=== PATIENT | male | born 1955 | race Caucasian/White ===

== ENCOUNTER 2017-04-17 10:19 | Inpatient (IN) | payer OTHER ==
[~2017-04-17] VITALS: Ht 190.5 cm; Wt 104.2 kg
[2017-04-17] MEDS ORDERED: GLUC500T4 PO (13:58)
[2017-04-17] MEDS ORDERED: ONCETAB7 PO (13:58)
[2017-04-17] MEDS ORDERED: LOSA25TA PO (13:58)
[2017-04-20] MEDS ORDERED: BUPIVACAINE LIPOSOME PF 1.3% 20 ML VIAL ONE (09:13)
[2017-04-20] MEDS ORDERED: DEXAMETHASONE SOD PHOS PF 10 MG/ML VIAL IV ONE (09:13)
[2017-04-20 10:56] VITALS: BP 134/89; PULSE 75; RESP 18; TEMP 98.5; O2SAT 96
[2017-04-20] MEDS ORDERED: LACTATED RINGER'S 1000 ML IV PRN (11:00)
[2017-04-20] MEDS ORDERED: INSULIN HUMAN REGULAR 1,000 UNITS/10 ML VIAL SQ PRN (11:00)
[2017-04-20] MEDS ORDERED: POVIDONE IODINE 5% (ANTISEPSIS KIT) 4 APPLICATIONS EACH NARE PRN (11:00)
[2017-04-20] MEDS ORDERED: METRONIDAZOLE 500 MG/100 ML ISONTONIC SOLN IV SCH (11:00)
[2017-04-20] MEDS ORDERED: CHLORHEXIDINE GLUCONATE 2 % 1 PACK (2 CLOTHS) TOPICAL PRN (11:00)
[2017-04-20] MEDS ORDERED: METOPROLOL TARTRATE 25 MG TAB PO PRN (11:00)
[2017-04-20] MEDS ORDERED: FLUCONAZOLE/NACL 400 MG/200 ML IV SCH (11:00)
[2017-04-20] MEDS ORDERED: SODIUM CHLORID 0.9% 500 ML IV PRN (11:00)
[2017-04-20] MEDS ORDERED: ceFAZolin 1,000 MG/NS 100 ML IV SCH ×2 (11:00)
[2017-04-20 11:33] LABS: AUTOMATED NEUTROPHIL # 6.5 TH/MM3 (1.8-7.7); BASOPHIL % 0.3 % (0.0-2.0); EOSINOPHIL # 0.2 TH/MM3 (0-0.4); EOSINOPHIL % 2.2 % (0.0-4.0); HEMATOCRIT 45.4 % (39.0-51.0); HEMO FLAGS DIFF FINAL; LYMPH % 26.5 % (9.0-44.0); LYMPHOCYTE # 2.7 TH/MM3 (1.0-4.8); MEAN CELL VOLUME 94.4 FL (80.0-100.0); MEAN CORPUSCULAR HEMOGLOBIN 32.4 PG (27.0-34.0); MEAN CORPUSCULAR HGB CONC 34.4 % (32.0-36.0); MONO % 6.8 % (0.0-8.0); NEUT % 64.2 % (16.0-70.0); PLATELET COUNT 255 TH/MM3 (150-450); RED BLOOD COUNT 4.81 MIL/MM3 (4.50-5.90); RED CELL DISTRIBUTION WIDTH 13.6 % (11.6-17.2); WHITE BLOOD COUNT 10.2 TH/MM3 (4.0-11.0)
[2017-04-20 11:48] LABS: BICARBONATE 25.8 MEQ/L (21.0-32.0)
[2017-04-20 11:51] LABS: POTASSIUM 4.2 MEQ/L (3.5-5.1)
[2017-04-20] MEDS ORDERED: BUPRENORPHINE HCL 0.3 MG/1 ML VIAL ONE (12:18)
[2017-04-20] MEDS ORDERED: FAMOTIDINE 20 MG/2 ML VIAL ONE (13:08)
[2017-04-20] MEDS ORDERED: PROPOFOL 200 MG/20 ML AMP IV ONE (14:51)
[2017-04-20] MEDS ORDERED: ONDANSETRON HCL 4 MG/2 ML VIAL IV PUSH ONE (14:52)
[2017-04-20] MEDS ORDERED: PHENYLEPH/NS 1000 MCG/10 ML SYR IV ONE (14:52)
[2017-04-20] MEDS ORDERED: ePHEDrine/NS 25 MG/5 ML SYR IV ONE (14:52)
[2017-04-20] MEDS ORDERED: NORMOSOL R INJ 2,000 ML IV ONE (14:53)
[2017-04-20] MEDS ORDERED: LACTATED RINGER'S 1000 ML INJ 1,000 ML IV ONE (14:53)
[2017-04-20] MEDS ORDERED: ceFAZolin 2 GM PREMIX 50 ML ONE (15:57)
[2017-04-20] MEDS ORDERED: SUGAMMADEX SODIUM 200 MG/2 ML VIAL IV PUSH ONE ×2 (16:05)
[2017-04-20] MEDS ORDERED: HYDROmorphone HCL PF 2 MG/ML VIAL ONE (16:05)
[2017-04-20] MEDS ORDERED: DO NOT ADM ANY ANTICOAGULANT DRUGS PRN (18:10)
[2017-04-20] MEDS ORDERED: fentaNYL CITRATE 250 MCG/5 ML AMP ONE (18:20)
[2017-04-20] MEDS ORDERED: MIDAZOLAM HCL 2 MG/2 ML VIAL ONE (18:20)
--- NOTE | 2017-04-20 18:29 | HHI.PR ---
Immediate Post Op Note Procedure Date: Apr 20, 2017 Pre Op Diagnosis: (1) Duodenal adenoma Post Op Diagnosis: (1) Duodenal adenoma Surgeon: Gus Jeffries Assistant Operations Manager(s): EGLA Kelley Procedure: Open duodenal resection ampullectomy appendectomy Findings: large polyp Complications: none Specimen(s) removed: ampulla, 2nd portion duodenum Estimated blood loss: 100ml Anesthesia: General, Regional Block Drains: DEVI IVF Patient to: PACU Patient Condition: Good Gus Jeffries MD Apr 20, 2017 18:29
[2017-04-20] MEDS ORDERED: NALOXONE HCL 0.4 MG/ML AMP IV PRN ×2 (18:30)
[2017-04-20] MEDS ORDERED: SODIUM CHLORIDE 0.9% FLUSH 10 ML FLUSH IV FLUSH PRN (18:30)
[2017-04-20] MEDS ORDERED: ONDANSETRON HCL 4 MG/2 ML VIAL IV PRN (18:30)
[2017-04-20] MEDS ORDERED: Post-op Orders (for Pharmacy) MISC XX ONE (18:30)
[2017-04-20] MEDS ORDERED: diphenhydrAMINE HCL 50 MG/ML VIAL IV PRN (18:30)
[2017-04-20] MEDS ORDERED: LORazepam 2 MG/ML VIAL IVP PRN (18:30)
[2017-04-20] MEDS: ACETAMINOPHEN 1000 MG/100 ML VIAL IV SCH (19:00)
[2017-04-20] MEDS: SODIUM CHLOR 0.9% 1000 ML INJ 1,000 ML IV SCH (19:00)
[2017-04-20] MEDS: MORPHINE SULFATE 30 MG/30 ML PCA IV SCH (19:24)
[2017-04-20] MEDS: metroNIDAZOLE 500 MG INJ 100 ML IV SCH (19:27)
[2017-04-20] MEDS: PANTOPRAZOLE SODIUM 40 MG VIAL IV SCH (19:31)
[2017-04-20 20:45] VITALS: BP 168/95; PULSE 80; RESP 17; TEMP 97.6; O2SAT 95
[2017-04-20] MEDS: SODIUM CHLORIDE 0.9% FLUSH 10 ML FLUSH IV FLUSH SCH (21:15)
[2017-04-20] MEDS: PCA - TOTAL MG MORPHINE DELIVERED PER SHIFT SCH (22:11)
[2017-04-21] VITALS (11 sets, daily range): BP systolic 144–165; BP diastolic 77–95; PULSE 64–83; RESP 12–26; TEMP 97.7–98.4; O2SAT 93–97
[2017-04-21] MEDS: ACETAMINOPHEN 1000 MG/100 ML VIAL IV SCH ×4 (01:34→13:31)
[2017-04-21] MEDS: SODIUM CHLOR 0.9% 1000 ML INJ 1,000 ML IV SCH ×2 (04:18→13:31)
[2017-04-21] MEDS: metroNIDAZOLE 500 MG INJ 100 ML IV SCH ×2 (04:18→11:18)
[2017-04-21] MEDS: PCA - TOTAL MG MORPHINE DELIVERED PER SHIFT SCH ×3 (06:00→22:00)
--- NOTE | 2017-04-21 07:35 | EKG ---
Date Performed: 04/20/2017 Time Performed: 10:48:06 PTAGE: 61 years EKG: Sinus rhythm NORMAL ECG NO PREVIOUS TRACING DOCTOR: Delfina Collazo Interpretating Date/Time 04/21/2017 07:35:30
[2017-04-21] MEDS: PANTOPRAZOLE SODIUM 40 MG VIAL IV SCH ×2 (07:44→20:06)
[2017-04-21] MEDS: SODIUM CHLORIDE 0.9% FLUSH 10 ML FLUSH IV FLUSH SCH ×2 (07:44→20:06)
[2017-04-21 09:03] LABS: AUTOMATED NEUTROPHIL # 13.4 TH/MM3 (1.8-7.7); BASOPHIL # 0.1 TH/MM3 (0-0.2); BASOPHIL % 0.3 % (0.0-2.0); HEMATOCRIT 42.4 % (39.0-51.0); HEMO FLAGS DIFF FINAL; LYMPH % 10.4 % (9.0-44.0); LYMPHOCYTE # 1.7 TH/MM3 (1.0-4.8); MEAN CELL VOLUME 95.5 FL (80.0-100.0); MEAN CORPUSCULAR HEMOGLOBIN 32.2 PG (27.0-34.0); MEAN CORPUSCULAR HGB CONC 33.7 % (32.0-36.0); MONO % 6.9 % (0.0-8.0); NEUT % 82.4 % (16.0-70.0); PLATELET COUNT 216 TH/MM3 (150-450); RED BLOOD COUNT 4.44 MIL/MM3 (4.50-5.90); RED CELL DISTRIBUTION WIDTH 13.7 % (11.6-17.2); WHITE BLOOD COUNT 16.3 TH/MM3 (4.0-11.0)
[2017-04-21 09:48] LABS: BICARBONATE 25.9 MEQ/L (21.0-32.0); POTASSIUM 4.4 MEQ/L (3.5-5.1)
[2017-04-21] MEDS: ENALAPRILAT 2.5 MG/2 ML VIAL IV PUSH PRN (11:18)
[2017-04-21 12:32] LABS: CALCIUM-PROTEIN CORRECTED 8.3 MG/DL (8.5-10.1)
--- NOTE | 2017-04-21 13:12 | HHI.PR ---
Subjective Subjective Notes Resting in bed Pain controlled using ZONE SUPERVISOR FIREARMS Anxious to get pathology report back Objective Vitals/I&O Vital Signs Date Time Temp Pulse Resp B/P Pulse Ox O2 Delivery O2 Flow Rate FiO2 04/21/17 12:00 64 04/21/17 12:00 98.2 13 152/80 94 04/21/17 08:14 Nasal Cannula 1.00 Labs Laboratory Tests Test 04/20/17 04/21/17 21:05 08:33 Nasal Screen MRSA (PCR) MRSA NOT DETECTED White Blood Count 16.3 Red Blood Count 4.44 Hemoglobin 14.3 Hematocrit 42.4 Mean Corpuscular Volume 95.5 Mean Corpuscular Hemoglobin 32.2 Mean Corpuscular Hemoglobin 33.7 Concent Red Cell Distribution Width 13.7 Platelet Count 216 Mean Platelet Volume 8.3 Neutrophils (%) (Auto) 82.4 Lymphocytes (%) (Auto) 10.4 Monocytes (%) (Auto) 6.9 Eosinophils (%) (Auto) 0.0 Basophils (%) (Auto) 0.3 Neutrophils # (Auto) 13.4 Lymphocytes # (Auto) 1.7 Monocytes # (Auto) 1.1 Eosinophils # (Auto) 0.0 Basophils # (Auto) 0.1 CBC Comment DIFF FINAL Differential Comment Sodium Level 138 Potassium Level 4.4 Chloride Level 107 Carbon Dioxide Level 25.9 Anion Gap 5 Blood Urea Nitrogen 16 Creatinine 1.01 Estimat Glomerular Filtration 75 Rate Random Glucose 117 Calcium Level 7.7 Protein Corrected Calcium 8.3 Total Protein 6.0 Cardiovascular: Regular Lungs: Clear Abdomen: Other (midline incision with isa; minimal serous drainage--- dressing replaced; DEVI with SS drainage; abdomen soft; mildly tender ) Extremities: No edema A/P Assessment and Plan 61 year old male POD1 Open duodenal resection; ampullectomy; appendectomy -Await pathology report -NPO -NGT to [facility] -PRRoland Enalapril -Discussed with JANI Jeffries to discuss pathology results with patient this afternoon Attending Statement The exam, history, and the medical decision-making described in the above note were completed with the assistance of the mid-level provider. I reviewed and agree with the findings presented. I attest that I had a [id number] encounter with the patient on the same day, and personally performed and documented my assessment and findings in the medical record. 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
[2017-04-21] MEDS: MORPHINE SULFATE 30 MG/30 ML PCA IV SCH (21:23)
[2017-04-22] VITALS: BP 163/86; PULSE 78; RESP 20; TEMP 97.5; O2SAT 96
[2017-04-22] MEDS: SODIUM CHLOR 0.9% 1000 ML INJ 1,000 ML IV SCH ×3 (00:21→20:21)
[2017-04-22] MEDS: PCA - TOTAL MG MORPHINE DELIVERED PER SHIFT SCH ×3 (05:53→20:50)
[2017-04-22 07:15] VITALS: PULSE 94
[2017-04-22 08:00] VITALS: BP 139/87; PULSE 94; RESP 20; TEMP 99.6; O2SAT 95
[2017-04-22] MEDS: PANTOPRAZOLE SODIUM 40 MG VIAL IV SCH ×2 (08:11→20:00)
[2017-04-22] MEDS: SODIUM CHLORIDE 0.9% FLUSH 10 ML FLUSH IV FLUSH SCH ×2 (08:13→20:50)
[2017-04-22 12:00] VITALS: BP 156/86; PULSE 86; RESP 20; TEMP 99.1; O2SAT 96
--- NOTE | 2017-04-22 15:47 | HHI.PR ---
Subjective Subjective Notes Up to chair Has been OOB all day Objective Vitals/I&O Vital Signs Date Time Temp Pulse Resp B/P Pulse Ox O2 Delivery O2 Flow Rate FiO2 04/22/17 14:00 16 04/22/17 12:00 99.1 86 156/86 96 04/21/17 20:00 Nasal Cannula 2.00 Cardiovascular: Regular Lungs: Clear Abdomen: Other (Abdominal binder in place; midline incision with c/d/i; adbomen soft; post op tenderness ) Extremities: No edema A/P Assessment and Plan 61 year old male POD2 Open duodenal resection; ampullectomy; appendectomy -Dr. Jeffries has reviewed pathology report with patient -Plan for UGI tomorrow -NPO -NGT to [facility] Guillen in AM -Discussed with RN Letha Palacios Apr 22, 2017 15:47
[2017-04-22 16:00] VITALS: BP 165/95; PULSE 85; RESP 20; TEMP 99.5; O2SAT 97
[2017-04-22] MEDS: ENALAPRILAT 2.5 MG/2 ML VIAL IV PUSH PRN (17:57)
[2017-04-22 20:00] VITALS: BP 167/92; PULSE 88; RESP 20; TEMP 99.1; O2SAT 96
[2017-04-22] MEDS: MORPHINE SULFATE 30 MG/30 ML PCA IV SCH (22:10)
[2017-04-23] VITALS (7 sets, daily range): BP systolic 134–166; BP diastolic 83–91; PULSE 82–107; RESP 18–20; TEMP 95.3–99.1; O2SAT 94–98
[2017-04-23] MEDS: PCA - TOTAL MG MORPHINE DELIVERED PER SHIFT SCH ×3 (06:00→22:00)
[2017-04-23] MEDS: SODIUM CHLOR 0.9% 1000 ML INJ 1,000 ML IV SCH ×2 (06:21→16:24)
[2017-04-23] MEDS: ENALAPRILAT 2.5 MG/2 ML VIAL IV PUSH PRN (06:24)
[2017-04-23 06:39] LABS: HEMATOCRIT 40.8 % (39.0-51.0); MEAN CELL VOLUME 94.7 FL (80.0-100.0); MEAN CORPUSCULAR HEMOGLOBIN 32.7 PG (27.0-34.0); MEAN CORPUSCULAR HGB CONC 34.5 % (32.0-36.0); PLATELET COUNT 201 TH/MM3 (150-450); RED BLOOD COUNT 4.31 MIL/MM3 (4.50-5.90); RED CELL DISTRIBUTION WIDTH 13.5 % (11.6-17.2); REVIEW FLAG FINAL; WHITE BLOOD COUNT 16.9 TH/MM3 (4.0-11.0)
[2017-04-23 07:01] LABS: BICARBONATE 26.6 MEQ/L (21.0-32.0); POTASSIUM 3.7 MEQ/L (3.5-5.1)
[2017-04-23] MEDS: PANTOPRAZOLE SODIUM 40 MG VIAL IV SCH ×2 (08:15→20:56)
[2017-04-23] MEDS: SODIUM CHLORIDE 0.9% FLUSH 10 ML FLUSH IV FLUSH SCH ×2 (08:15→20:56)
--- NOTE | 2017-04-23 08:31 | MP ---
cc: ANETTE FARIAS DATE OF SURGERY 04/20/2017 PREOPERATIVE DIAGNOSIS Second portion duodenal adenoma. POSTOPERATIVE DIAGNOSIS Second portion duodenal adenoma. PROCEDURE 1. Second portion of duodenal resection. 2. Ampullectomy 3. Incidental appendectomy 4. Placement of anti-adhesion barrier (Seprafilm) ATTENDING SURGEON Anette Farias MD CUTTING AND CREASING PRESS OPERATOR GELA Chavez ANESTHESIA General and regional tap block. BLOOD LOSS 100 cc COMPLICATIONS None FINDINGS Large circumferential carpet type adenoma of the second portion of the duodenum. Biopsies and ampullectomy returned inconclusive and intraoperative frozen recommended permanent sections. INDICATIONS FOR PROCEDURE The patient is 61-year-old male who underwent an upper endoscopy which showed a large carpet type adenoma in the second portion of the duodenum. Biopsy showed some dysplasia. There did not appeared be any involvement of the ampulla on endoscopy. CT scans otherwise where negative for any sign of malignancy, although there was concern on MRI about possible ampullary mass. On discussion with the patient about the risks, benefits, alternatives to surgery including duodenal resection and possible ampullectomy and possible Whipple procedure and he agreed to undergo the procedure for treatment of his adenoma. The patient was taken to the operating room, placed in the supine position, and placed under general anesthesia. The patient underwent a regional tap block by anesthesia. The patient's abdomen was shaved, prepped and draped in a sterile fashion. Time out was performed. The abdomen was entered through an upper midline incision from the umbilicus to the xiphoid with the 10 blade scalpel. Bovie electrocautery was used to dissect the subcutaneous tissue and open the midline fascia for the full length of the incision. Able to place a Mcdonald retractor getting better exposure as well as a James wound protector. We then were able to perform a Cattell brash maneuver and mobile the colon and performed a full kocherization of the duodenum. There was no evidence of any intraabdominal pathology and no metastatic disease. No liver disease or any masses. With palpation of the first, second and third portion of the duodenum, there is clearly some fullness at the second portion. We did open up the junction of the first and second portion down to the second portion laterally with the Bovie electrocautery. We placed some stay sutures and visualized the duodenum. The ampulla was very full and appeared to be mildly abnormal although with no obvious adenoma, mass or malignancy. There is a carpet type adenoma that involved 360 degrees right at the second portion just proximal and lateral to the ampulla. We went ahead and resected this completely using the Bovie electrocautery 360 degrees of the proximal second portion of the duodenum and laterally across from the ampulla. We had clear gross margins at this point in time and all the adenoma was removed. We then did perform a biopsy of the ampulla which came back concerning for possible adenomatous change. Therefore, a complete ampullectomy was performed. Further frozen sections on the distal duodenum came back negative. However, the frozen section on the bile duct intrapancreatic portion came back inconclusive. At this point in time, we were unsure of the extent of this process and due to not being able to confirm the full extent of disease, we opted not to continue with a more aggressive resection like Whipple procedure. I did feel that it was appropriate to treat the patient based on a known disease and order a stat pathology processing to gain further understand of these. I did feel it was in the patient's best interest to go ahead and reconstruct the duodenum at this point in time and await final pathology and either commence follow up or proceed with more aggressive surgery based on final pathology. We were able to mobilize the third and fourth portion of the duodenum to bring up the third portion proximally which completely covered the area of the ampullectomy. We were able to close the lateral duodenotomy and the distal first portion longitudinally and then we closed the first portion to the distal second portion horizontally in a Heineke-Mikulicz type closure. This was a 360 degrees closure and we did have one area laterally with a T-type tissue closure and this was reinforced with a four corner stitch to Lembert this down as this was a potential area of weakness. We did insufflate some air into the stomach and duodenum and occlude the third portion with gentle hand pressure and there was no air leak under air and no bubbles from the suture line. The tissue appeared pink, healthy and viable. At this point in time, I felt we had an adequate closure. Of note, we did place a small biliary plastic 7-Italian stent in the bile duct biopsy at the site of the ampullectomy. This was in good position as well. We did place a 19-Italian round Deejay drain through a separate stab incision just lateral and posterior to the repair. NG tube was confirmed to be in good position and placed to suction. We irrigated out the abdomen with three liters of sterile saline until all succinate was clear. We did again examine the full abdomen during our washout and stage at the end of the procedure, we did evaluate the remainder of the small bowel, colon and appendix and all appeared normal except there were multiple large fecaliths in the appendix. We felt this would put the patient at an increased risk for complications long-term with his appendix and we went ahead and proceeded with an open appendectomy at this point in time. We tied the base of the appendix and divided this over a Katrina hemostat with a 2-0 silk tie. We divided the mesentery of the appendix with a 2-0 silk tie over a right-angle. The appendix was passed off for permanent processing. We did dunk the appendiceal stump with a Z-stitch using a 3-0 silk suture. At this point in time, we placed omentum over the duodenum area and placed the small bowel and greater omentum back over the midline in normal anatomic position. We placed Seprafilm at the midline over the omentum and closed the midline fascia with a single running #1 loop PDS suture. We closed the skin with isa and a sterile dressing was applied. The drain was sutured in place with a nylon suture and placed to bulb suction. The patient was discontinued from anesthesia, taken to the PACU in stable condition. The patient tolerated procedure well. No apparent complications. All counts were correct and I was present and scrubbed for the entire procedure. MD BRANDY Bocanegra/LUCY /12:11 PM /8:08 AM
[2017-04-23] MEDS ORDERED: DIATRIZOATE MEGLUM/DIATRIZOATE SOD 120 ML BTL (for RAD DIAG) NG ONE (09:30)
--- NOTE | 2017-04-23 10:51 | RADRPT ---
EXAM DATE/TIME: 04/23/2017 09:47 [facility] COMPARISON: No previous studies available for comparison. INDICATIONS : Evaluate for leaks. Post open duodenal resection, ampullectomy FLUORO TIME: 3.0 minutes IMAGE COUNT: 17 CONTRAST: 1. MD Hardin MEDICAL HISTORY : Hypertension. SURGICAL HISTORY : Tonsillectomy. Orthopedic surgeries. ENCOUNTER: Initial ACUITY: 2 days PAIN SCORE: 5/10 LOCATION: Abdomen, upper quadrant. FINDINGS: Preliminary film is unremarkable. Examination was performed following administration of Gastrografin through nasogastric tube. Examination of the stomach demonstrates no evidence of intraluminal mass or extrinsic compression. T he gastric volume appears normal and there are no findings of ulceration. The mucosal pattern appear s normal. The duodenal bulb and sweep demonstrates mild nodular mucosal thickening but no evidence of leakage. Internal biliary stent appears to be well-positioned. The visualized small bowel is unremarkable. CONCLUSION: Mild nodular mucosal thickening throughout the duodenal C-loop without evidence of leakage or obstruc tion. Well-positioned internal biliary stent. Edwar Chauhan MD on April 23, 2017 at 10:46 Board Certified Radiologist. This report was verified electronically.
--- NOTE | 2017-04-23 17:22 | HHI.PR ---
Subjective Subjective Notes Asking about removal of NGT Pain controlled Has been OOB Objective Vitals/I&O Vital Signs Date Time Temp Pulse Resp B/P Pulse Ox O2 Delivery O2 Flow Rate FiO2 04/23/17 16:00 98.2 83 18 148/86 95 04/21/17 20:00 Nasal Cannula 2.00 Labs Laboratory Tests Test 04/23/17 05:30 White Blood Count 16.9 Red Blood Count 4.31 Hemoglobin 14.1 Hematocrit 40.8 Mean Corpuscular Volume 94.7 Mean Corpuscular Hemoglobin 32.7 Mean Corpuscular Hemoglobin 34.5 Concent Red Cell Distribution Width 13.5 Platelet Count 201 Mean Platelet Volume 8.8 Sodium Level 138 Potassium Level 3.7 Chloride Level 104 Carbon Dioxide Level 26.6 Anion Gap 7 Blood Urea Nitrogen 12 Creatinine 0.84 Estimat Glomerular Filtration 93 Rate Random Glucose 80 Calcium Level 8.4 Cardiovascular: Regular Lungs: Clear Abdomen: Other (incision c/d/i---dressing in place; isa; DEVI with SS ) Extremities: No edema A/P Assessment and Plan 61 year old male POD3 Open duodenal resection; ampullectomy; appendectomy -UGI with no leaks -Start clear liquids -DC NGT -Guillen out; +void -OOB and mobilize -TRAFFIC RATE COMPUTER for pain -Discussed with RN Letha Mcbride Apr 23, 2017 17:22
[2017-04-24] VITALS (8 sets, daily range): BP systolic 133–163; BP diastolic 72–94; PULSE 74–83; RESP 18–20; TEMP 97.5–99.4; O2SAT 91–96
[2017-04-24] MEDS: SODIUM CHLOR 0.9% 1000 ML INJ 1,000 ML IV SCH ×2 (03:23→11:55)
[2017-04-24] MEDS: PCA - TOTAL MG MORPHINE DELIVERED PER SHIFT SCH (06:00)
[2017-04-24] MEDS: PANTOPRAZOLE SODIUM 40 MG VIAL IV SCH ×2 (08:16→20:27)
[2017-04-24] MEDS: SODIUM CHLORIDE 0.9% FLUSH 10 ML FLUSH IV FLUSH SCH ×2 (08:17→20:27)
[2017-04-24] MEDS ORDERED: ACETAMINOPHEN/HYDROcodone 325 MG/5 MG TAB PO PRN (11:00)
[2017-04-24] MEDS: ACETAMINOPHEN/HYDROcodone 325 MG/5 MG TAB PO PRN ×2 (11:51→20:30)
--- NOTE | 2017-04-24 16:55 | HHI.PR ---
Subjective Subjective Notes Tolerated clear liquids Has been OOB today Happy that his throat no longer hurts Objective Vitals/I&O Vital Signs Date Time Temp Pulse Resp B/P Pulse Ox O2 Delivery O2 Flow Rate FiO2 04/24/17 16:00 99.4 74 18 133/72 94 04/24/17 08:10 Room Air 04/23/17 20:50 2.00 Cardiovascular: Regular Lungs: Clear Abdomen: Other (Abd binder in place; midline incision with isa is c/d/i; abdomen soft; non distended; post op tenderness ) Extremities: No edema A/P Assessment and Plan 61 year old male POD4 Open duodenal resection; ampullectomy; appendectomy -UGI with no leaks -Advance to full liquids -OOB and mobilize -INDUSTRIAL AUTOMATION SPECIALIST for pain + Adona added ---wean INDUSTRIAL AUTOMATION SPECIALIST -Plan for DC this weekend -Mr. Leonard will go home on a full liquid diet until follow up visit with Letha Patten Apr 24, 2017 16:55
[2017-04-25] VITALS: BP 126/62; PULSE 85; RESP 20; TEMP 99.1; O2SAT 93
[2017-04-25] MEDS: ACETAMINOPHEN/HYDROcodone 325 MG/5 MG TAB PO PRN (07:02)
[2017-04-25 08:00] VITALS: BP 136/76; PULSE 85; RESP 17; TEMP 98.4; O2SAT 94
[2017-04-25 08:02] VITALS: RESP 18
[2017-04-25] MEDS: PANTOPRAZOLE SODIUM 40 MG VIAL IV SCH (08:12)
[2017-04-25] MEDS: SODIUM CHLORIDE 0.9% FLUSH 10 ML FLUSH IV FLUSH SCH (08:13)
--- NOTE | 2017-04-25 10:49 | HHI.PR ---
Subjective Subjective Notes wants to go home, eating well Objective Vitals/I&O Vital Signs Date Time Temp Pulse Resp B/P Pulse Ox O2 Delivery O2 Flow Rate FiO2 04/25/17 08:02 18 04/25/17 08:00 98.4 85 136/76 94 04/24/17 08:10 Room Air 04/23/17 20:50 2.00 Cardiovascular: Regular Lungs: Clear Abdomen: Non-distended, Non-tender Extremities: No edema, Perfused, SCD's on Narrative Exam inc c/d/i A/P Assessment and Plan 61yo male s/p duodenal resection and ampullectomy, dong well. - kvng PO + BM DC home Gus Jeffries MD Apr 25, 2017 10:49
== END 2017-04-25 15:41 | disposition home or self-care (01) | DRG 328 ==
LOC: HSDI 04-20 10:16 → N03B 04-20 20:42 → N07B 04-21 22:41
PROVIDERS: ADMIT Surgery; ATTEND Surgery
PROC: 0DTJ0ZZ Resection of Appendix, Open Approach (ICD-10-PCS; 2017-04-20)
PROC: 0FB Hepatobiliary System and Pancreas, Excision (ICD-10-PCS; 2017-04-20)
PROC: 3E0M05Z Introduction of Adhesion Barrier into Peritoneal Cavity, Open Approach (ICD-10-PCS; 2017-04-20)
PROC: 0DB90ZZ Excision of Duodenum, Open Approach (ICD-10-PCS; principal; 2017-04-20 13:12)
DX: D13.2 Benign neoplasm of duodenum (principal); I10 Essential (primary) hypertension; F17.290 Nicotine dependence, other tobacco product, uncomplicated; K21.9 Gastro-esophageal reflux disease without esophagitis
CPT/HCPCS: 74241; 80048; 84155; 85025; 85027; 86850; 86900; 86901; 87641; 88304; 88305; 88307; 88331; 93005; 94150; C9113; C9290; J0131; J0592; J0690; J1100; J1170; J1450; J2250; J2270; J2370; J2405; J3010; J7030; J7120; Q9963